=== PATIENT | male | born 1965 | race Two or more races ===

== ENCOUNTER 2019-01-24 15:46 | Emergency (ER) | payer SELFPAY ==
[~2019-01-24] VITALS: Ht 165.1 cm; Wt 74.8 kg
[2019-01-24] MEDS ORDERED: MECLIZINE HCL 12.5 MG TABLET. PO ONE (16:45)
[2019-01-24 16:49] LABS: BASO % 1 % (0-3); EOS # 0.1 x10^3/uL (0.0-0.7); EOS % 1 % (0-3); HEMATOCRIT 47.2 % (39.0-53.0); HEMOGLOBIN 15.8 g/dL (13.0-17.5); LYMPH # 3.8 x10^3/uL (1.0-4.8); LYMPH % 40 % (24-48); MEAN CORPUSCULAR HEMOGLOBIN 27 pg (25-35); MEAN CORPUSCULAR HGB CONC 33 g/dL (31-37); MEAN CORPUSCULAR VOLUME 80 fL (79-100); MONO # 0.6 x10^3/uL (0.0-1.1); MONO % 6 % (0-9); NEUT # 4.9 x10^3uL (1.8-7.7); NEUT % 52 % (31-73); PLATELET COUNT 266 x10^3/uL (140-400); RED CELL DISTRIBUTION WIDTH 15.6 % (11.5-14.5); WHITE BLOOD COUNT 9.4 x10^3/uL (4.0-11.0)
[2019-01-24 16:59] LABS: CREATININE 1.1 mg/dL (0.7-1.3); GFR 70.3; POTASSIUM 4.5 mmol/L (3.5-5.1)
[2019-01-24 17:00] LABS: PROTHROMBIN TIME PATIENT 12.5 SEC (11.7-14.0)
[2019-01-24 17:05] LABS: ALBUMIN 3.4 g/dL (3.4-5.0); ALBUMIN/GLOBULIN RATIO 0.8 (1.0-1.7); TOTAL BILIRUBIN 0.5 mg/dL (0.2-1.0); TOTAL PROTEIN 7.9 g/dL (6.4-8.2)
--- NOTE | 2019-01-24 17:38 | RAD ---
EXAM: CHEST 1 VIEW. HISTORY: Dizziness. COMPARISON: None. FINDINGS: A frontal view of the chest is obtained. The right hemidiaphragm is mildly elevated. There are no confluent infiltrates. There is no pneumothorax or pleural effusion. The heart is not enlarged. IMPRESSION: 1. No confluent infiltrates. Electronically signed by: Kathleen Andersen MD (01/24/2019 5:35 PM) [facility] – [place]
--- NOTE | 2019-01-24 17:41 | RAD ---
EXAM: CT HEAD WITHOUT CONTRAST. HISTORY: Dizziness. TECHNIQUE: Computed tomography of the head was performed without intravenous contrast. COMPARISON: None. FINDINGS: There is no intracranial hemorrhage. Armenta-white differentiation is preserved. The ventricles are normal in size and position. There are mucus retention cysts in the right maxillary sinusitis. The orbits are unremarkable. The temporal bones are unremarkable. The calvarium reveals no suspicious lesions. IMPRESSION: 1. No acute intracranial findings. *One or more of the following individualized dose reduction techniques were utilized for this examination: 1. Automated exposure control. 2. Adjustment of the mA and/or kV according to patient size. 3. Use of iterative reconstruction technique. Electronically signed by: Kathleen Andersen MD (01/24/2019 5:38 PM) [facility] [place]
[2019-01-24 18:00] VITALS: BP 129/87
[2019-01-24] MEDS ORDERED: MECL25TA3 PO (18:07)
[2019-01-24] MEDS ORDERED: ONDA4TAB7 PO (18:07)
--- NOTE | 2019-01-24 18:08 | PHYS DOC ---
Past Medical History Past Medical History: No Pertinent History Past Surgical History: No Surgical History Alcohol Use: None Drug Use: None Adult General Chief Complaint Chief Complaint: DIZZY/LIGHT HEADED HPI HPI Patient is a 53 year old male who presents with several episodes of dizziness that started this morning. Describes it as rotational dizziness, worse with changing head position. It improves after 15-30 seconds. There is some nausea. Patient had previous history of this with a previous head injury. There has been no new head injury. No chest pain or palpitations. No worsening with going from laying to sitting or sitting to standing. [] Review of Systems Review of Systems Constitutional: Denies fever or chills [] Eyes: Denies change in visual acuity, redness, or eye pain [] HENT: Denies nasal congestion or sore throat [] Respiratory: Denies cough or shortness of breath [] Cardiovascular: No chest pain or palpitations[] GI: Denies abdominal pain, nausea, vomiting, bloody stools or diarrhea [] : Denies dysuria or hematuria [] Musculoskeletal: Denies back pain or joint pain [] Integument: Denies rash or skin lesions [] Neurologic: Denies headache, focal weakness or sensory changes [] Endocrine: Denies polyuria or polydipsia [] All other systems were reviewed and found to be within normal limits, except as documented in this note. Current Medications Current Medications Current Medications Medications (Trade) Dose Ordered Sig/Oliver Start Time Stop Time Status Last Admin Dose Admin Meclizine HCl (Antivert) 25 mg 1X ONCE 01/24/19 16:45 01/24/19 16:46 DC 01/24/19 17:12 25 MG Allergies Allergies Allergies Coded Allergies Type Severity Reaction Last Updated Verified No Known Drug Allergies 01/24/19 No Physical Exam Physical Exam Constitutional: Well developed, well nourished, no acute distress, non-toxic appearance. [] HENT: Normocephalic, atraumatic, bilateral external ears normal, oropharynx moist, no oral exudates, nose normal. [] Eyes: PERRLA, EOMI, conjunctiva normal, no discharge. [] Neck: Normal range of motion, no tenderness, supple, no stridor. [] Cardiovascular:Heart rate regular rhythm, no murmur [] Lungs & Thorax: Bilateral breath sounds clear to auscultation [] Abdomen: Bowel sounds normal, soft, no tenderness, no masses, no pulsatile masses. [] Skin: Warm, dry, no erythema, no rash. [] Back: No tenderness, no CVA tenderness. [] Extremities: No tenderness, no cyanosis, no clubbing, ROM intact, no edema. [] Neurologic: Alert and oriented X 3, normal motor function, normal sensory function, no focal deficits noted. Some nystagmus noted with left sided fast beat when performing Hallpike maneuvers however patient did not have any dizziness when these were performed. [] Psychologic: Affect normal, judgement normal, mood normal. [] Current Patient Data Vital Signs Vital Signs Date Time Temp Pulse Resp B/P (MAP) Pulse Ox O2 Delivery O2 Flow Rate FiO2 01/24/19 16:23 98.0 76 16 145/79 (101) 98 Room Air 98.0 Lab Values Laboratory Tests Test 01/24/19 16:23 White Blood Count 9.4 x10^3/uL (4.0-11.0) Red Blood Count 5.90 x10^6/uL (4.30-5.70) H Hemoglobin 15.8 g/dL (13.0-17.5) Hematocrit 47.2 % (39.0-53.0) Mean Corpuscular Volume 80 fL (79-100) Mean Corpuscular Hemoglobin 27 pg (25-35) Mean Corpuscular Hemoglobin Concent 33 g/dL (31-37) Red Cell Distribution Width 15.6 % (11.5-14.5) H Platelet Count 266 x10^3/uL (140-400) Neutrophils (%) (Auto) 52 % (31-73) Lymphocytes (%) (Auto) 40 % (24-48) Monocytes (%) (Auto) 6 % (0-9) Eosinophils (%) (Auto) 1 % (0-3) Basophils (%) (Auto) 1 % (0-3) Neutrophils # (Auto) 4.9 x10^3uL (1.8-7.7) Lymphocytes # (Auto) 3.8 x10^3/uL (1.0-4.8) Monocytes # (Auto) 0.6 x10^3/uL (0.0-1.1) Eosinophils # (Auto) 0.1 x10^3/uL (0.0-0.7) Basophils # (Auto) 0.0 x10^3/uL (0.0-0.2) Prothrombin Time 12.5 SEC (11.7-14.0) Prothrombin Time INR 1.0 (0.8-1.1) Sodium Level 141 mmol/L (136-145) Potassium Level 4.5 mmol/L (3.5-5.1) Chloride Level 102 mmol/L (98-107) Carbon Dioxide Level 27 mmol/L (21-32) Anion Gap 12 (6-14) Blood Urea Nitrogen 13 mg/dL (8-26) Creatinine 1.1 mg/dL (0.7-1.3) Estimated GFR (Cockcroft-Gault) 70.3 BUN/Creatinine Ratio 12 (6-20) Glucose Level 165 mg/dL (70-99) H Calcium Level 9.0 mg/dL (8.5-10.1) Total Bilirubin 0.5 mg/dL (0.2-1.0) Aspartate Amino Transferase (AST) 82 U/L (15-37) H Alanine Aminotransferase (ALT) 126 U/L (16-63) H Alkaline Phosphatase 70 U/L (46-116) Troponin I Quantitative < 0.017 ng/mL (0.000-0.055) IG-Nxp-Y-Type Natriuretic Peptide 7 pg/mL (0-124) Total Protein 7.9 g/dL (6.4-8.2) Albumin 3.4 g/dL (3.4-5.0) Albumin/Globulin Ratio 0.8 (1.0-1.7) L Laboratory Tests 01/24/19 16:23 Laboratory Tests 01/24/19 16:23 EKG EKG EKG shows a sinus rhythm, 67 bpm, normal axis, normal QTC. No ST elevations. Interpreted by me at 1625[] Radiology/Procedures Radiology/Procedures EXAM: CHEST 1 VIEW. HISTORY: Dizziness. COMPARISON: None. FINDINGS: A frontal view of the chest is obtained. The right hemidiaphragm is mildly elevated. There are no confluent infiltrates. There is no pneumothorax or pleural effusion. The heart is not enlarged. IMPRESSION: 1. No confluent infiltrates. EXAM: CT HEAD WITHOUT CONTRAST. HISTORY: Dizziness. TECHNIQUE: Computed tomography of the head was performed without intravenous contrast. COMPARISON: None. FINDINGS: There is no intracranial hemorrhage. Armenta-white differentiation is preserved. The ventricles are normal in size and position. There are mucus retention cysts in the right maxillary sinusitis. The orbits are unremarkable. The temporal bones are unremarkable. The calvarium reveals no suspicious lesions. IMPRESSION: 1. No acute intracranial findings.[] Course & Med Decision Making Course & Med Decision Making Pertinent Labs and Imaging studies reviewed. (See chart for details) ED course: Patient arrived, was placed in bed, and tolerated exam well. He was transported to and from [place] with any complications. He had orthostatic vital signs performed which were normal and did not trigger the symptoms. After the return of the laboratory and imaging findings, these were discussed with the patient who voiced understanding. All questions were answered. Medical decision making: There is no evidence of an acute stroke syndrome, no evidence of significant dehydration, no significant electrolyte abnormalities, no evidence of this being an acute coronary syndrome or congestive heart failure.[] Dragon Disclaimer Dragon Disclaimer This electronic medical record was generated, in whole or in part, using a voice recognition dictation system. Departure Departure Impression: Primary Impression: Peripheral vertigo Disposition: 01 HOME, SELF-CARE Condition: GUARDED Referrals: NO PCP (PCP) Patient Instructions: Vertigo Additional Instructions: Drink plenty of fluids. Follow-up with your regular doctor in 2 days. If you do not have a regular doctor list of local clinics will be provided for you. Return to the ER if any concerns. Scripts Ondansetron Hcl (ZOFRAN) 4 Mg Tablet 4 MG PO PRN TID PRN for NAUSEA/VOMITING, #15 nausea/vomiting Prov: WINSOME SAL DO 01/24/19 Meclizine Hcl (MECLIZINE HCL) 25 Mg Tablet 25 MG PO PRN TID PRN for VERTIGO, #30 dizziness Prov: WINSOME SAL DO 01/24/19 Problem Qualifiers Primary Impression: Peripheral vertigo Laterality: unspecified laterality Qualified Codes: H81.399 - Other peripheral vertigo, unspecified ear WINSOME SAL DO Jan 24, 2019 18:08
[2019-01-24 18:11] LABS: BILIRUBIN,URINE NEGATIVE (NEG); CLARITY,URINE CLEAR; COLOR,URINE YELLOW; NITRITE,URINE NEGATIVE (NEG); PH,URINE 7.5; PROTEIN,URINE 100 mg/dL (NEG-TRACE); UROBILINOGEN,URINE 0.2 mg/dL (0.2 mg/dL)
[2019-01-24 18:19] LABS: BACTERIA,URINE 0 /HPF (0-FEW); RBC,URINE OCC /HPF (0-2); SQUAMOUS EPITHELIAL CELL,UR FEW /LPF
--- NOTE | 2019-01-25 08:43 | EKG ---
[facility] [address] [place] [address] Test Date: 2019-01-24 Test Time: 16:19:41 Pat Name: LILLIAN CONCEPCION Department: Room: Gender: M [employer] Machine Operator: : [id number] Requested By: WINSOME SAL Order Number: [id number] Reading MD: Carlitos Galvan MD Measurements Intervals [place] Rate: 67 P: 40 PA: 192 QRS: 79 QRSD: 96 T: 34 QT: 366 QTc: 389 Interpretive Statements SINUS RHYTHM Electronically Signed On 02-03-2019 22:05:56 CDT by Carlitos Galvan MD
== END 2019-01-24 18:42 | disposition home or self-care (01) ==
LOC: ER 15:46
DX: H81.399 Other peripheral vertigo, unspecified ear (principal); J32.0 Chronic maxillary sinusitis
CPT/HCPCS: 36415; 70450; 71045; 80053; 81001; 83880; 84484; 85025; 85610; 93005; 99284; J8597